=== PATIENT | female | born 1935 | race Caucasian/White ===

== ENCOUNTER 2019-03-21 13:02 | Inpatient (IN) | payer OTHER ==
[~2019-03-21] VITALS: Ht 157.5 cm; Wt 69.6 kg
[2019-03-21 14:07] LABS: Basophils # (auto) 0.1 uL; Eosinophils # (auto) 0.3 uL; Eosinophils % (auto) 4.2 % (0.0-7.0); Hematocrit 41.8 % (36.0-46.0); Lymphocytes # (auto) 1.9 uL; Lymphocytes % (auto) 24.1 % (10.0-50.0); Mean Corpuscular Hemoglobin 31.7 pg (28.0-32.0); Mean Corpuscular Hgb Conc. 33.4 g/dL (32.0-36.0); Mean Corpuscular Volume 94.8 fL (80.0-100.0); Monocytes # (auto) 0.7 uL; Monocytes % (auto) 8.9 % (0.0-12.0); Neutrophils # (auto) 4.9 uL; Neutrophils % (auto) 61.8 % (37.0-80.0); Platelet Count (auto) 290 10^3/uL (140-450); Red Blood Cells 4.42 10^6/uL (4.0-5.20); Red Cell Distribution Width 14.3 % (11.8-14.3); White Blood Cell 7.9 10^3/uL (4.4-10.8)
[2019-03-21 14:28] LABS: Alanine Aminotransferase 24 U/L (13-56); Albumin 3.5 g/dL (3.4-5.0); Anion Gap 7 (5-15); Aspartate Aminotransferase 21 U/L (15-37); BUN/Creatinine Ratio 33.8; Blood Urea Nitrogen 26 mg/dL (7-18); Calcium 8.9 mg/dL (8.5-10.1); Carbon Dioxide 26 mmol/L (21-32); Chloride 107 mmol/L (98-107); GFR African American 91 mL/min; GFR Non-African American 76 mL/min; Glucose 128 mg/dL (74-106); Potassium 4.3 mmol/L (3.5-5.1); Sodium 140 mmol/L (136-145)
[2019-03-21 14:33] LABS: Alkaline Phosphatase 66 U/L (45-117); Bilirubin, Total 0.5 mg/dL (0.2-1.0); Total Protein 7.5 g/dL (6.4-8.2)
[2019-03-21] MEDS ORDERED: ACETAMINOPHEN 500 MG TAB PO PRN (15:15)
[2019-03-21] MEDS ORDERED: DOPamine 1600MCG/ML D5W 250 ML IV SCH (15:15)
[2019-03-21] MEDS ORDERED: NITROGLYCERIN 0.4 MG SL TAB SL PRN (15:15)
[2019-03-21] MEDS ORDERED: ONDANSETRON HCL 4 MG/2 ML VIAL IV PRN (15:15)
[2019-03-21] MEDS ORDERED: MORPHINE SULF INJ 2 MG/ML SYRINGE 1ML IV PRN ×2 (15:15)
[2019-03-21 16:22] LABS: Urine WBC None Seen /hpf (0 - 5)
[2019-03-21 16:30] LABS: Urine Bacteria NONE SEEN /hpf (None Seen); Urine Blood Negative /uL (Negative); Urine Specific Gravity 1.008 (1.001-1.035)
[2019-03-21] MEDS ORDERED: LORazepam 2MG/ML-1ML VIAL IV ONE (17:30)
[2019-03-21] MEDS ORDERED: LIDOCAINE 1% HCL (LOCAL ANESTH.) INJ 20ML MDV ONE (17:30)
[2019-03-21] MEDS: hydrALAZINE HCL 20 MG/ML VL IV SCH (20:26)
[2019-03-21] MEDS: HYDROcodone-ACET 5/325MG TAB PO PRN (21:38)
[2019-03-22] MEDS: hydrALAZINE HCL 20 MG/ML VL IV SCH ×4 (06:00→18:32)
[2019-03-22] MEDS: SODIUM CHLORIDE 0.9% 1,000 ML IV SCH ×2 (09:41→19:15)
[2019-03-22] MEDS: FAMOTIDINE 20 MG TAB PO SCH (09:41)
[2019-03-22 11:16] LABS: Basophils # (auto) 0 uL; Basophils % (auto) 0.6 % (0.0-2.0); Eosinophils # (auto) 0.3 uL; Eosinophils % (auto) 4.2 % (0.0-7.0); Hematocrit 43.7 % (36.0-46.0); Hemoglobin 14.4 g/dL (12.2-16.2); Lymphocytes # (auto) 1.6 uL; Mean Corpuscular Hemoglobin 31.4 pg (28.0-32.0); Mean Corpuscular Volume 95.4 fL (80.0-100.0); Monocytes # (auto) 0.6 uL; Monocytes % (auto) 9.3 % (0.0-12.0); Neutrophils # (auto) 3.7 uL; Neutrophils % (auto) 59.9 % (37.0-80.0); Platelet Count (auto) 255 10^3/uL (140-450); Red Blood Cells 4.58 10^6/uL (4.0-5.20); Red Cell Distribution Width 14.5 % (11.8-14.3); White Blood Cell 6.2 10^3/uL (4.4-10.8)
[2019-03-22 11:29] LABS: INR 1.04 (0.9-1.15); Partial Thromboplastin Time 24.9 sec (23.64-32.05)
[2019-03-22 11:37] LABS: Potassium 3.9 mmol/L (3.5-5.1)
[2019-03-22 11:46] LABS: BUN/Creatinine Ratio 33.8; Calcium 8.9 mg/dL (8.5-10.1)
[2019-03-22] MEDS ORDERED: fentaNYL CITRATE 100 MCG/2 ML VL ONE (11:58)
[2019-03-22] MEDS ORDERED: VANCOMYCIN HCL 1000 MG VL ONE (11:58)
[2019-03-22] MEDS ORDERED: VANCOMYCIN 1GM/250ML 250 ML IV ONE (11:59)
[2019-03-22] MEDS ORDERED: MIDAZOLAM HCL 1MG/1ML-2 ML VIAL ONE (11:59)
[2019-03-22] MEDS ORDERED: LIDOCAINE 2%HCL (LOCAL ANESTH.) INJ 20ML MDV ONE (12:03)
[2019-03-22] MEDS ORDERED: HYDROcodone-ACET 5/325MG TAB PO PRN (14:45)
[2019-03-22] MEDS ORDERED: ACETAMINOPHEN 325 MG TAB PO PRN (14:45)
--- NOTE | 2019-03-22 15:45 | NUR ---
Telemetry admit from molder labels: ESPINOZA BAGLEY admitted to Telemetry unit after SBAR received. Patient oriented to MEENA COREAS, RN primary RN, unit, room, bed, and unit policies regarding patient care and visiting hours. Patient now on continuous telemetry monitoring, tele box # 12 and telemetry reading on arrival to unit is paced 88. Patient placed on bedside oxygen 2 LPM, weighed by bedscale and encouraged to call if they need something. All questions and concerns addressed, patient verbalized understanding.
[2019-03-22 17:46] VITALS: BP 131/69
[2019-03-22] MEDS: HYDROcodone-ACET 5/325MG TAB PO PRN (18:26)
[2019-03-22] MEDS ORDERED: LISI40TA PO (18:59)
[2019-03-22] MEDS ORDERED: HCTZ25T PO (18:59)
--- NOTE | 2019-03-22 19:38 | NUR ---
Closing note: Patient laying in bed. No s?s of distress/SOB or pain at this time. Care endorsed to [facility] nurse Ramon.
--- NOTE | 2019-03-22 19:45 | NUR ---
assumed care, pt. awake, no c/o pain, dressing on lt. upper chest dry and intact, with sling, no sob.
[2019-03-22] MEDS ORDERED: INFLUENZA QUAD 2019-2020 0.5ml SYRG IM ONE (20:00)
[2019-03-22] MEDS: ATORVASTATIN 20 MG TAB PO SCH (21:47)
[2019-03-22 22:00] VITALS: BP 95/53
[2019-03-22] MEDS: ceFAZolin 1GM 2 GM in D5W 5% 100 ML IV SCH (22:03)
[2019-03-23] MEDS: SODIUM CHLORIDE 0.9% 1,000 ML IV SCH ×2 (03:00→17:44)
[2019-03-23 05:35] VITALS: BP 127/62
[2019-03-23] MEDS: hydrALAZINE HCL 20 MG/ML VL IV SCH ×5 (06:00→23:40)
[2019-03-23] MEDS: ceFAZolin 1GM 2 GM in D5W 5% 100 ML IV SCH ×2 (06:59→17:44)
--- NOTE | 2019-03-23 08:30 | NUR ---
Opening Note Assumed care of patient, she is A & O x4, sitting up eating breakfast, no s/s of distress. Patient sling placed to the L arm, patient educated not to raise arm, lift, or pull anything with this arm, ice pack placed, dressing to the L upper chest is clean and dry. Some mild swelling to the left axillary region. Will continue to monitor. Bed is in lowest, locked position, bed rails up x2, call light within reach. bed alarm on. Will continue to monitor Q1h and PRN.
[2019-03-23 09:00] VITALS: BP 147/77
[2019-03-23] MEDS: FAMOTIDINE 20 MG TAB PO SCH (10:19)
[2019-03-23] MEDS: HYDROcodone-ACET 5/325MG TAB PO PRN ×2 (10:19→23:40)
--- NOTE | 2019-03-23 11:05 | NUR ---
Dr. Haider at bedside PT consult order received, read back and verified, will place per orders. Possible D/C tomorrow.
[2019-03-23 13:00] VITALS: BP 133/67
--- NOTE | 2019-03-23 15:02 | NUR ---
Assessment Pt is a 84 yr old alert and oriented female. Prior to admit, pt lived alone, was ambulatory with walker and was independent with ADL's, cooking and cleaning. Pt has a "life alert" button that she has used a couple of times when she has fallen. Pt has several family members close by who help out when needed. Pt's step-daughter, Rachel, is pt's emergency contact at [phone]. Pt stated that she was unsure if she needed to go to a SNF or going home but stated that she would need help in the home. [facility] offered private caregiver information, pt declined. Pt thought that her insurance would cover a nurse coming in to help with bathing. [facility] educated pt on services and that if dr ordered it, they could help with skilled needs. Pt's granddaughter stated that family members would help out with pt's in home needs as well as transportation home. Pt was unsure of d/c needs and stated that she hasn't talked with a DrCarmela yet to see what she will need. SW will f/u on pt's needs closer to d/c. Addendum: 03/23/19 at 1513 by SACHA CASE Amended: Links added.
[2019-03-23 17:21] VITALS: BP 92/48
--- NOTE | 2019-03-23 19:40 | NUR ---
assumed care, pt. awake, dressing on lt.upper chest dry and intact, sling on lt. arm in place, no c/o pain, no sob.
[2019-03-23] MEDS: ATORVASTATIN 20 MG TAB PO SCH (21:45)
[2019-03-23 22:00] VITALS: BP 148/72
[2019-03-24] MEDS: SODIUM CHLORIDE 0.9% 1,000 ML IV SCH ×2 (01:15→03:51)
[2019-03-24] MEDS: ceFAZolin 1GM 2 GM in D5W 5% 100 ML IV SCH ×2 (02:02→10:11)
[2019-03-24 05:00] VITALS: BP 143/61
[2019-03-24] MEDS: hydrALAZINE HCL 20 MG/ML VL IV SCH (05:37)
[2019-03-24 07:28] LABS: Free T4 (Free Thyroxine) 1.13 ng/dL (0.89-1.76)
--- NOTE | 2019-03-24 07:28 | NUR ---
Critical Lab reported Calcium 5.0 L, paged hospitalist.
[2019-03-24 07:29] LABS: Folate (Folic Acid) 23.31 ng/mL (5.38-24)
--- NOTE | 2019-03-24 07:30 | NUR ---
Opening Note Assumed care of patient, patient is nauseas and actively vomiting, patient does not have an IV at this time, NOC shift was unable to secure an IV. Patient has a critical lab. Will attempt to secure an IV. POC discussed with patient. Bed is in lowest, locked position, call light within reach. Patient is sitting up with vomit bag in hand. Will continue to monitor Q1h and PRN.
--- NOTE | 2019-03-24 07:36 | NUR ---
Spoke to hospitalist Dr. Dumont, Notified of critical calcium level 5.0L, orders received, read back and verified. Will medicate per orders.
[2019-03-24] MEDS ORDERED: CALCIUM GLUC 4.65meq/50ml D5AE 50 ML IV ONE ×2 (07:45→09:00)
[2019-03-24 09:00] VITALS: BP 140/75
--- NOTE | 2019-03-24 09:30 | NUR ---
One bag of Calcium Gluconate given, advised to hold second bag by lab at this time. Will redraw calcium level.
--- NOTE | 2019-03-24 09:40 | NUR ---
Yasmin Nguyen This RN was notified that the lab was having an issue with laboratory values for calcium this morning, the value was 5.0, they will come and redraw the labs to confirm. Will hold the second Calcium Gluconate order.
--- NOTE | 2019-03-24 09:45 | NUR ---
Dr. Haider notified regarding Calcium levels and Lab redraw.
--- NOTE | 2019-03-24 10:00 | NUR ---
Spoke to Dr. Haider regarding blood pressure medication. Orders received, read back and verified. Will medicate per orders
[2019-03-24] MEDS: FAMOTIDINE 20 MG TAB PO SCH (10:06)
--- NOTE | 2019-03-24 11:26 | NUR ---
PT Patient RN requested to hold PT during morning visit. Addendum: 03/24/19 at 1127 by LOCO NOVOA PTT Amended: Links added.
[2019-03-24] MEDS ORDERED: HCTZ 25 MG TAB PO SCH (11:30)
[2019-03-24] MEDS ORDERED: LISINOPRIL 20 MG TAB PO SCH (11:30)
--- NOTE | 2019-03-24 11:45 | NUR ---
Lab This RN was notified that patient calcium is 8.5, and within normal limits. Will notify
[2019-03-24 11:47] LABS: Calcium 8.5 mg/dL (8.5-10.1); Potassium 3.8 mmol/L (3.5-5.1)
[2019-03-24 11:53] LABS: BUN/Creatinine Ratio 26.6
[2019-03-24 13:00] VITALS: BP 125/61
--- NOTE | 2019-03-24 15:00 | NUR ---
PT at bedside. Patient was able to ambulate with standby assistance with georgiana walker, PT recommended use of a cane or georgiana-walker. Patient stated that she has multiple canes at home. PT stated a walker would be good to use as well once patient is cleared to use her left arm.
--- NOTE | 2019-03-24 15:32 | NUR ---
Dr. Haider will be discharging the patient home.
--- NOTE | 2019-03-24 16:55 | NUR ---
Discharge planning per SS consult, patient has orders for home health for PT. Referral sent to management for review and after careful review, patient does not meet criteria for home PT, however can follow up as out patient. Dr. Haider is aware of dc plan.
[2019-03-24 17:00] VITALS: BP 128/55
[2019-03-24] MEDS ORDERED: INFLUENZA QUAD 2019-2020 0.5ml SYRG IM ONE (17:09)
--- NOTE | 2019-03-24 17:50 | NUR ---
Discharge instructions given as ordered. Encourage to follow up with PMD as instructed. All questions and concerns addressed. Patient verbalized understanding. Medication reconciliation form completed and copy given to patient. Needed vaccines given. IV removed with catheter intact, pressure dressing applied, shoulder immobilizer to the left shoulder. Telemetry unit returned to ICU. Patient taken to vehicle via wheelchair with all personal belongings, accompanied by staff and family member. No distress noted at time of departure.
[2019-03-25] MEDS ORDERED: HCTZ 25 MG TAB PO SCH (10:00)
[2019-03-25] MEDS ORDERED: LISINOPRIL 20 MG TAB PO SCH (10:00)
== END 2019-03-24 17:50 | disposition home health service (06) | DRG 243 ==
LOC: ER 13:02 → TELE 13:03 → TELE-EAST 03-22 15:55
PROVIDERS: ADMIT Nurse Practitioner Acute Care; ATTEND Internal Medicine
PROC: 0JH606Z Insertion of Pacemaker, Dual Chamber into Chest Subcutaneous Tissue and Fascia, Open Approach (ICD-10-PCS; principal; 2019-03-22)
PROC: 02H63JZ Insertion of Pacemaker Lead into Right Atrium, Percutaneous Approach (ICD-10-PCS; 2019-03-22)
PROC: 02HK3JZ Insertion of Pacemaker Lead into Right Ventricle, Percutaneous Approach (ICD-10-PCS; 2019-03-22)
DX: I44.1 Atrioventricular block, second degree (principal); I50.32 Chronic diastolic (congestive) heart failure; R00.1 Bradycardia, unspecified; I44.60 Unspecified fascicular block; E78.5 Hyperlipidemia, unspecified; I44.2 Atrioventricular block, complete; I10 Essential (primary) hypertension; E78.00 Pure hypercholesterolemia, unspecified; R73.03 Prediabetes; M19.90 Unspecified osteoarthritis, unspecified site; Z90.710 Acquired absence of both cervix and uterus; Z96.659 Presence of unspecified artificial knee joint; Z23 Encounter for immunization
CPT/HCPCS: 33208; 36415; 36556; 71045; 80048; 80053; 80061; 81001; 82306; 82607; 82746; 83036; 83735; 84439; 84443; 84484; 85025; 85610; 85730; 86850; 86900; 86901; 93005; 93306; 97116; 97530; 99152; 99153; 99291; C1785; G0378; J0610; J0690; J2001; J2250; J2405; J7060

== ENCOUNTER → 2019-04-14 | Outpatient (CLI) | payer OTHER ==
[~2019-04-14] MED LIST: HCTZ25T PO; LISI40TA PO
[2019-04-14 15:22] LABS: Basophils # (auto) 0 uL; Basophils % (auto) 0.4 % (0.0-2.0); Eosinophils # (auto) 0.1 uL; Eosinophils % (auto) 0.9 % (0.0-7.0); Hematocrit 43.6 % (36.0-46.0); Hemoglobin 14.5 g/dL (12.2-16.2); Lymphocytes # (auto) 1.6 uL; Lymphocytes % (auto) 14.4 % (10.0-50.0); Mean Corpuscular Hemoglobin 31.7 pg (28.0-32.0); Mean Corpuscular Hgb Conc. 33.3 g/dL (32.0-36.0); Mean Corpuscular Volume 95.3 fL (80.0-100.0); Monocytes # (auto) 0.9 uL; Monocytes % (auto) 8.2 % (0.0-12.0); Neutrophils # (auto) 8.6 uL; Neutrophils % (auto) 76.1 % (37.0-80.0); Nucleated Red Blood Cells % 0.1 %; Platelet Count (auto) 209 10^3/uL (140-450); Red Blood Cells 4.57 10^6/uL (4.0-5.20); White Blood Cell 11.3 10^3/uL (4.4-10.8)
[2019-04-14 15:33] LABS: BUN/Creatinine Ratio 27.7; Calcium 9.2 mg/dL (8.5-10.1); Potassium 3.9 mmol/L (3.5-5.1)
== END | disposition home or self-care (01) ==
LOC: LAB 14:51
PROVIDERS: ATTEND Internal Medicine
DX: I12.9 Hypertensive chronic kidney disease with stage 1 through stage 4 chronic kidney disease, or unspecified chronic kidney disease (principal); E11.22 Type 2 diabetes mellitus with diabetic chronic kidney disease; N18.9 Chronic kidney disease, unspecified; R06.02 Shortness of breath; Z95.1 Presence of aortocoronary bypass graft
CPT/HCPCS: 36415; 80048; 83880; 85025

== ENCOUNTER → 2019-05-27 | Outpatient (CLI) | payer OTHER ==
[2019-05-27 09:14] LABS: BUN/Creatinine Ratio 27.9; Calcium 9.5 mg/dL (8.5-10.1); Potassium 3.8 mmol/L (3.5-5.1)
== END | disposition home or self-care (01) ==
LOC: LAB 08:10
PROVIDERS: ATTEND Internal Medicine
DX: I26.99 Other pulmonary embolism without acute cor pulmonale (principal)
CPT/HCPCS: 36415; 80048; 81241; 85302; 85306

== ENCOUNTER → 2019-07-21 | Outpatient (CLI) | payer OTHER | END | disposition home or self-care (01) | LOC: LAB 11:45 | PROVIDERS: ATTEND Internal Medicine Gastroenterology | DX: R93.9 Diagnostic imaging inconclusive due to excess body fat of patient (principal) | CPT/HCPCS: 36415; 83690 ==

== ENCOUNTER → 2019-11-24 | Outpatient (CLI) | payer OTHER | END | disposition home or self-care (01) | LOC: LAB 10:24 | PROVIDERS: ATTEND Internal Medicine | DX: I10 Essential (primary) hypertension (principal); R53.83 Other fatigue; R93.3 Abnormal findings on diagnostic imaging of other parts of digestive tract | CPT/HCPCS: 36415; 80061; 82565; 84439; 84443; 84520 ==

== ENCOUNTER → 2020-05-11 | Outpatient (CLI) | payer OTHER ==
[~2020-05-11] VITALS: Ht 157.5 cm; Wt 63.5 kg
[~2020-05-11] MED LIST changes: +ADENOSINE 53 MG in GIVE UN-DILUTED 0 ML IV STA; -LISI40TA PO; +LISI40TA11 PO
== END | disposition home or self-care (01) ==
LOC: XYW 08:20
PROVIDERS: ATTEND Internal Medicine
DX: I10 Essential (primary) hypertension (principal)
CPT/HCPCS: 78452; 93017; A9500; J0153

== ENCOUNTER → 2020-06-09 | Outpatient (CLI) | payer OTHER ==
[~2020-06-09] MED LIST changes: -ADENOSINE 53 MG in GIVE UN-DILUTED 0 ML IV STA
[2020-06-09 10:24] LABS: Basophils # (auto) 0 10 ^3/uL (0-0.2); Basophils % (auto) 0.7 % (0.0-2.0); Eosinophils # (auto) 0.2 10 ^3/uL (0-0.8); Hematocrit 38.2 % (36.0-46.0); Hemoglobin 12.9 g/dL (12.2-16.2); Lymphocytes # (auto) 1.1 10 ^3/uL (0.4-5.4); Mean Corpuscular Hemoglobin 30.8 pg (28.0-32.0); Mean Corpuscular Hgb Conc. 33.9 g/dL (32.0-36.0); Mean Corpuscular Volume 91.1 fL (80.0-100.0); Monocytes # (auto) 0.5 10 ^3/uL (0-1.3); Monocytes % (auto) 8.8 % (0.0-12.0); Neutrophils # (auto) 3.8 10 ^3/uL (1.6-8.6); Neutrophils % (auto) 67.5 % (37.0-80.0); Platelet Count (auto) 237 10^3/uL (140-450); Red Blood Cells 4.19 10^6/uL (4.0-5.20); Red Cell Distribution Width 16.1 % (11.8-14.3); White Blood Cell 5.7 10^3/uL (4.4-10.8)
[2020-06-09 10:58] LABS: Urine Bacteria FEW /hpf (None Seen); Urine Blood TRACE /uL (Negative); Urine Hyaline Cast FEW /lpf (0 - 2); Urine Mucus FEW (None Seen); Urine Specific Gravity 1.021 (1.001-1.035); Urine WBC 1 /hpf (0 - 5)
[2020-06-09 11:19] LABS: Potassium 3.8 mmol/L (3.5-5.1)
[2020-06-09 11:26] LABS: Albumin 3.6 g/dL (3.4-5.0); BUN/Creatinine Ratio 27.6; Bilirubin, Total 0.9 mg/dL (0.2-1.0); Total Protein 7.7 g/dL (6.4-8.2)
[2020-06-10 08:08] LABS: Immunoglobulin G, Serum 1333 mg/dL (586-1602)
== END | disposition home or self-care (01) ==
LOC: LAB 09:54
PROVIDERS: ATTEND Internal Medicine
DX: E11.9 Type 2 diabetes mellitus without complications (principal); Z86.718 Personal history of other venous thrombosis and embolism; Z95.0 Presence of cardiac pacemaker
CPT/HCPCS: 36415; 80053; 80061; 81001; 82150; 82784; 83036; 83690; 84439; 84443; 85025; 85652; 86301

== ENCOUNTER → 2020-11-17 | Outpatient (CLI) | payer OTHER ==
[~2020-11-17] MED LIST changes: -HCTZ25T PO; +HYDR25TA5 PO
[2020-11-17 14:59] LABS: Basophils # (auto) 0 10 ^3/uL (0-0.2); Basophils % (auto) 0.7 % (0.0-2.0); Eosinophils # (auto) 0.2 10 ^3/uL (0-0.8); Eosinophils % (auto) 2.6 % (0.0-7.0); Hematocrit 39.6 % (36.0-46.0); Hemoglobin 13.3 g/dL (12.2-16.2); Lymphocytes # (auto) 1.2 10 ^3/uL (0.4-5.4); Lymphocytes % (auto) 20.3 % (10.0-50.0); Mean Corpuscular Hemoglobin 29.9 pg (28.0-32.0); Mean Corpuscular Hgb Conc. 33.5 g/dL (32.0-36.0); Mean Corpuscular Volume 89.4 fL (80.0-100.0); Monocytes # (auto) 0.6 10 ^3/uL (0-1.3); Monocytes % (auto) 9.3 % (0.0-12.0); Neutrophils % (auto) 67.1 % (37.0-80.0); Nucleated Red Blood Cells % 0.1 %; Platelet Count (auto) 254 10^3/uL (140-450); Red Blood Cells 4.43 10^6/uL (4.0-5.20); Red Cell Distribution Width 17.5 % (11.8-14.3)
[2020-11-17 15:19] LABS: Albumin 3.5 g/dL (3.4-5.0); Calcium 8.9 mg/dL (8.5-10.1); Potassium 4.2 mmol/L (3.5-5.1)
[2020-11-17 15:22] LABS: BUN/Creatinine Ratio 32.9; Bilirubin, Total 0.8 mg/dL (0.2-1.0); Total Protein 7.2 g/dL (6.4-8.2)
== END | disposition home or self-care (01) ==
LOC: LAB 14:46
PROVIDERS: ATTEND Internal Medicine
DX: I10 Essential (primary) hypertension (principal); R73.03 Prediabetes
CPT/HCPCS: 36415; 80053; 83036; 84443; 85025; 85049; 85652

== ENCOUNTER → 2020-12-08 | Outpatient (CLI) | payer OTHER | END | disposition home or self-care (01) | LOC: XYW 10:01 | PROVIDERS: ATTEND Internal Medicine | DX: I08.1 Rheumatic disorders of both mitral and tricuspid valves (principal); I42.9 Cardiomyopathy, unspecified; I10 Essential (primary) hypertension; I45.4 Nonspecific intraventricular block | CPT/HCPCS: 93306 ==

== ENCOUNTER → 2021-09-27 | Outpatient (CLI) | payer OTHER ==
[2021-09-27 11:10] LABS: Basophils # (auto) 0 10 ^3/uL (0-0.2); Basophils % (auto) 0.7 % (0.0-2.0); Eosinophils # (auto) 0.3 10 ^3/uL (0-0.8); Eosinophils % (auto) 4.8 % (0.0-7.0); Hematocrit 40.8 % (36.0-46.0); Hemoglobin 13.8 g/dL (12.2-16.2); Lymphocytes # (auto) 1.2 10 ^3/uL (0.4-5.4); Lymphocytes % (auto) 21.9 % (10.0-50.0); Mean Corpuscular Hemoglobin 32.1 pg (28.0-32.0); Mean Corpuscular Hgb Conc. 33.7 g/dL (32.0-36.0); Mean Corpuscular Volume 95.2 fL (80.0-100.0); Monocytes # (auto) 0.6 10 ^3/uL (0-1.3); Monocytes % (auto) 10.3 % (0.0-12.0); Neutrophils # (auto) 3.4 10 ^3/uL (1.6-8.6); Neutrophils % (auto) 62.3 % (37.0-80.0); Nucleated Red Blood Cells % 0.1 %; Red Blood Cells 4.29 10^6/uL (4.0-5.20); Red Cell Distribution Width 14.4 % (11.8-14.3); White Blood Cell 5.5 10^3/uL (4.4-10.8)
[2021-09-27 11:34] LABS: Albumin 3.5 g/dL (3.4-5.0); Calcium 9.1 mg/dL (8.5-10.1); Potassium 4.1 mmol/L (3.5-5.1)
[2021-09-27 11:38] LABS: BUN/Creatinine Ratio 34.7; Bilirubin, Total 0.6 mg/dL (0.2-1.0); Total Protein 7.4 g/dL (6.4-8.2); Uric Acid 4.5 mg/dL (2.6-6.0)
== END | disposition home or self-care (01) ==
LOC: LAB 10:54
PROVIDERS: ATTEND Internal Medicine
DX: I10 Essential (primary) hypertension (principal)
CPT/HCPCS: 36415; 80053; 83036; 84439; 84443; 84550; 85025; 85652

== ENCOUNTER → 2021-10-29 | Outpatient (CLI) | payer OTHER | END | disposition home or self-care (01) | LOC: XYW 08:40 | PROVIDERS: ATTEND Internal Medicine | DX: I08.2 Rheumatic disorders of both aortic and tricuspid valves (principal); I48.0 Paroxysmal atrial fibrillation | CPT/HCPCS: 93306 ==